=== PATIENT | male | born 1990 | race African-American/Black ===

== ENCOUNTER 2017-09-03 16:22 | Emergency (ER) | payer OTHER ==
[~2017-09-03] VITALS: Ht 165.1 cm; Wt 68.0 kg
[~2017-09-03 16:22] MED LIST: IBUP-1050 PO; PRT/20 PO; RANI150T85 PO
[2017-09-03 16:28] VITALS: BP 140/92; PULSE 74; TEMP 37; O2SAT 98; Ht 165.1 cm; Wt 68.0 kg
[2017-09-03] MEDS ORDERED: IBUPROFEN 600 MG TAB PO STA (16:47)
[2017-09-03] MEDS ORDERED: TRAMADOL HCL 50 MG TAB PO STA (16:47)
[2017-09-03] MEDS ORDERED: MELO7.5T5 PO (16:48)
[2017-09-03] MEDS ORDERED: IBUP-1449 PO (16:49)
--- NOTE | 2017-09-03 17:37 | DIAGNOSTIC IMAGING REPORT ---
C-SPINE ROUTINE 4 OR 5 VIEWS CLINICAL HISTORY: 27 years-old Male presenting with Chronic back pain for years, no recent trauma. TECHNIQUE: Lateral, bilateral oblique, frontal, and open-mouth odontoid views of the cervical spine were obtained. COMPARISON: None. FINDINGS: Slight reversal of normal cervical lordosis, which may be positional. Vertebral bodies maintain normal height and alignment. Intervertebral disc heights preserved. The C7 vertebral body is fully visualized. No osseous neural foraminal narrowing. No radiographic evidence of fracture or subluxation. Normal predental interval. The lateral masses of C1 articulate normally with C2. Slight positional related rotatory subluxation of C1 on C2. No pre-vertebral soft tissue swelling. IMPRESSION: 1. Slight reversal of normal cervical lordosis could be positional or related to muscle spasm. 2. No radiographic evidence of acute osseous injury or advanced degenerative change. Electronically signed by: Paul Gomez M.D. 09/03/2017 5:35 PM Dictated Date/Time: 09/03/2017 5:34 PM
--- NOTE | 2017-09-03 17:38 | DIAGNOSTIC IMAGING REPORT ---
L-SPINE MIN 4 VIEWS ROUTINE, THORACIC SPINE 3 VIEWS ROUTINE HISTORY: 27 years-old Male Chronic back pain chronic mid and low back pain without reported trauma COMPARISON: Chest radiographs 09/07/2015 TECHNIQUE: 3 views of the thoracic spine and 5 views of the lumbar spine FINDINGS: THORACIC: No acute fracture, subluxation or significant degenerative changes. Imaged lung cazares appear clear. LUMBAR: 11 degrees convex right curvature of the lumbar spine measured from L1-L4. There are 5 nonrib-bearing lumbar type vertebral segments present. There is no acute fracture, subluxation or significant degenerative changes. No spondylolysis or spondylolisthesis. Moderate volume of formed stool throughout the colon, notably the right hemicolon suggests constipation. IMPRESSION: 1. No acute fracture or subluxation. 2. Mild dextroscoliosis of the lumbar spine. The above report was generated using voice recognition software. It may contain grammatical, syntax or spelling errors. Electronically signed by: Omar Evans M.D. 09/03/2017 5:36 PM Dictated Date/Time: 09/03/2017 5:34 PM
[2017-09-03] MEDS ORDERED: CYCL10TA6 PO (18:04)
[2017-09-03] MEDS ORDERED: TRAM-10 PO (18:04)
--- NOTE | 2017-09-04 00:22 | EMERGENCY ROOM VISIT NOTE ---
History First contact with patient: 16:36 Chief Complaint: PAIN (GENERALIZED) Stated Complaint: NECK AND BACK PAIN History of Present Illness The patient is a 27 year old male who presents to the Emergency Room with complaints of chronic neck and back pain that he has had since sixth grade. The patient reports that he has seen his PCP, Dr. Rodriguez who does not seem to be too concerned about his chronic pain. He also reports that he has noticed a lump in his left shoulder area as well that he discussed with her. He reports having an x-ray of the left shoulder approximately 8-12 months ago that was normal. He does not feel that the lump is getting much larger, yet still persists. The patient denies any recent injuries to his shoulder, neck or back. He denies any paresthesias or numbness of the upper or lower extremities or torso region. He reports that sometimes it feels like he has spasms in his neck. He has taken Motrin and Tylenol without any significant relief, and currently rates his discomfort a 9 out of 10. Review of Systems 10 system review was performed and was negative except for pertinent positives and negatives as indicated in history of present illness Past Medical/Surgical History Medical Problems: (1) Pneumonia Family History Cancer Diabetes mellitus Heart disease Hypertension Lung disease Social History Smoking Status: Current Every Day Smoker Alcohol Use: occasionally Marital Status: Housing Status: lives with family Occupation Status: unemployed Current/Historical Medications Scheduled PRN Cyclobenzaprine Hcl (Flexeril), 10 MG PO TID PRN for spasm Ibuprofen Tab (Motrin), 400 MG PO for Pain Tramadol (Ultram), 1-2 TAB PO Q4H PRN for Pain Physical Exam Vital Signs Date Time Temp Pulse Resp B/P (MAP) Pulse Ox O2 Delivery O2 Flow Rate FiO2 09/03/17 16:28 37.0 74 16 140/92 98 Room Air Physical Exam CONSTITUTIONAL: Healthy and well nourished. Alert and oriented X 3 with positive affect. Patient appears in mild discomfort. HEENT: Normocephalic, atraumatic. Pupils equal, round and reactive. NECK: Examination shows generalized tenderness to palpation of the cervical musculature. No palpable muscle spasms noted. RESPIRATORY: Clear to auscultation bilaterally with no wheezing, crackles, rhonchi or stridor. CARDIOVASCULAR: Regular rate and rhythm with no murmurs, rubs or gallops. GASTROINTESTINAL: Bowel sounds present in all quadrants. Soft and nontender to palpation MUSCULOSKELETAL: Examination shows generalized tenderness to palpation of the thoracolumbar region. No palpable muscle spasms noted. Examination left anterior shoulder shows a soft tissue mass just medial to the bicipital groove. It is nontender to palpation, and does not move with range of motion of the shoulder or biceps tendons. INTEGUMENTARY: No rash or other significant dermatologic conditions noted. NEUROLOGIC: No focal neurologic deficits noted. Upper and lower extremities are sensory intact. Medical Decision & Procedures ER Provider Diagnostic Interpretation: My interpretation of cervical spine x-rays show straightening of the lordotic curve, otherwise no other significant degenerative changes are noted. Radiologist report is as follows: C-SPINE ROUTINE 4 OR 5 VIEWS CLINICAL HISTORY: 27 years-old Male presenting with Chronic back pain for years, no recent trauma. TECHNIQUE: Lateral, bilateral oblique, frontal, and open-mouth odontoid views of the cervical spine were obtained. COMPARISON: None. FINDINGS: Slight reversal of normal cervical lordosis, which may be positional. Vertebral bodies maintain normal height and alignment. Intervertebral disc heights preserved. The C7 vertebral body is fully visualized. No osseous neural foraminal narrowing. No radiographic evidence of fracture or subluxation. Normal predental interval. The lateral masses of C1 articulate normally with C2. Slight positional related rotatory subluxation of C1 on C2. No pre-vertebral soft tissue swelling. IMPRESSION: 1. Slight reversal of normal cervical lordosis could be positional or related to muscle spasm. 2. No radiographic evidence of acute osseous injury or advanced degenerative change. Thoracolumbar x-rays demonstrate a dextroscoliosis as discussed in the following radiologist report: L-SPINE MIN 4 VIEWS ROUTINE, THORACIC SPINE 3 VIEWS ROUTINE HISTORY: 27 years-old Male Chronic back pain chronic mid and low back pain without reported trauma COMPARISON: Chest radiographs 09/07/2015 TECHNIQUE: 3 views of the thoracic spine and 5 views of the lumbar spine FINDINGS: THORACIC: No acute fracture, subluxation or significant degenerative changes. Imaged lung cazares appear clear. LUMBAR: 11 degrees convex right curvature of the lumbar spine measured from L1-L4. There are 5 nonrib-bearing lumbar type vertebral segments present. There is no acute fracture, subluxation or significant degenerative changes. No spondylolysis or spondylolisthesis. Moderate volume of formed stool throughout the colon, notably the right hemicolon suggests constipation. IMPRESSION: 1. No acute fracture or subluxation. 2. Mild dextroscoliosis of the lumbar spine. Medications Administered Medications (Trade) Dose Ordered Sig/Shauna Route Start Time Stop Time Status Last Admin Dose Admin Ibuprofen (Motrin Tab) 600 mg NOW STAT PO 09/03/17 16:47 09/03/17 16:49 DC 09/03/17 17:42 600 MG Tramadol HCl (Ultram Tab) 50 mg NOW STAT PO 09/03/17 16:47 09/03/17 16:49 DC 09/03/17 17:43 50 MG ED Course Patient history and physical exam were performed. Nurse's notes were reviewed. Vital signs were reviewed and were normal. The patient was administered Motrin and Ultram for pain. X-rays of the cervical spine shows straightening of lordotic curve. X-rays of the thoracolumbar spine shows a dextroscoliosis without any other acute findings. Findings were discussed with the patient. The patient will be provided prescriptions for Flexeril and Ultram. He was also encouraged to alternate ibuprofen and Tylenol for baseline pain relief. The patient was encouraged to follow-up with his PCP for further reevaluation of his neck/back pain and soft tissue mass of the left anterior shoulder. The patient was happy with plan of care, and voiced understanding of all discharge instructions, rating his discomfort a 4 out of 10 at the conclusion of my exam. Medical Decision [place] Drug Monitoring Program Search Results: patient reviewed within database, no issues identified Medication Reconcilliation Current Medication List: was personally reviewed by me Blood Pressure Screening Patient's blood pressure: Normal blood pressure Impression Primary Impression: Scoliosis Additional Impressions: Chronic neck and back pain Left shoulder soft tissue mass Departure Information Dispostion Home / Self-Care Condition FAIR Prescriptions Tramadol (Ultram) 50 Mg Tab 1-2 TAB PO Q4H Y for Pain, #15 TAB For Initial Treatment Prov: Abebe Linda PA 09/03/17 Cyclobenzaprine Hcl (FLEXERIL) 10 Mg Tab 10 MG PO TID Y for spasm, #15 TAB Prov: Abebe Linda PA 09/03/17 Forms WORK / SCHOOL INSTRUCTIONS, HOME CARE DOCUMENTATION FORM, IMPORTANT VISIT INFORMATION Patient Instructions My [employer] Additional Instructions Intermittently apply heat to back as needed. Ibuprofen 800 mg and/or Tylenol 1000 mg every 8 hours. You may also alternate these medications for more effective pain relief: Ibuprofen --4 HRS--> Tylenol --4 HRS--> ibuprofen --4 HRS--> Tylenol .... Take Ultram if needed for additional nonsedating pain relief. Take Flexeril as needed for muscle tightness/spasm. Do not drink alcohol or drive while taking Flexeril. Follow-up with your family doctor for referral to orthopedics for further reevaluation of your back, and the lump on the left shoulder. Problem Qualifiers Primary Impression: Scoliosis Scoliosis type: unspecified scoliosis Spinal region: thoracolumbar Qualified Codes: M41.9 - Scoliosis, unspecified
== END 2017-09-03 18:35 | disposition home or self-care (01) ==
LOC: C.EDB 16:23 → C.EDD 18:35
DX: M41.9 Scoliosis, unspecified (principal); M54.2 Cervicalgia; M54.9 Dorsalgia, unspecified; G89.29 Other chronic pain; M79.9 Soft tissue disorder, unspecified; F17.200 Nicotine dependence, unspecified, uncomplicated